=== PATIENT | male | born 1945 | race Caucasian/White ===

== ENCOUNTER 2018-05-16 11:38 | Inpatient (IN) | payer OTHER ==
[~2018-05-16] VITALS: Ht 172.7 cm; Wt 105.2 kg
[2018-05-16 11:49] VITALS: BP 183/88
[2018-05-16] MEDS ORDERED: ZOLOFT25 MG PO (11:55)
[2018-05-16 12:28] LABS: HEMATOCRIT 44.8 % (42.0-52.0); HEMOGLOBIN 15.5 gm/dL (14.0-18.0); MCH 30.5 pg (26.0-34.0); MCHC 34.5 g/dL (28.0-37.0); MCV 88.4 fL (80.0-100.0); MPV 7.6 fl. (7.2-11.1); NUCLEATED RBCS 0 /100WBC; PLATELET COUNT* 272 thou/uL (150-400); RBC 5.07 mil/uL (4.50-6.00); RDW-CV 13.9 % (10.5-14.5); WBC 8.4 thou/uL (4.0-11.0)
[2018-05-16 12:46] LABS: ANION GAP 7 mmol/L (7-16); BUN 16 mg/dL (7-18); CALCIUM 9.4 mg/dL (8.5-10.1); CHLORIDE 95 mmol/L (98-107); CO2 32 mmol/L (21-32); GLUCOSE 162 mg/dL (70-99); POTASSIUM 3.2 mmol/L (3.5-5.1); SODIUM 134 mmol/L (136-145); TROPONIN-I LEVEL <0.06 ng/mL (<0.06)
[2018-05-16 12:47] LABS: ALBUMIN 3.9 g/dL (3.4-5.0); ALKALINE PHOSPHATASE 71 U/L (46-116); NT-PRO BRAIN NAT PEPTIDE 286 pg/mL (<300); SGOT 25 U/L (15-37); SGPT 22 U/L (30-65); TOTAL BILIRUBIN 0.7 mg/dL (<0.1-1.0)
[2018-05-16] MEDS ORDERED: BUPRENORPHINE HC8 MG PO (13:19)
[2018-05-16] MEDS ORDERED: ALPRAZOLAM ER1 MG PO (13:19)
[2018-05-16 13:38] LABS: URINE BLOOD TRACE (Negative); URINE CLARITY CLEAR; URINE COLOR YELLOW; URINE GLUCOSE-RANDOM NEGATIVE (Negative); URINE KETONES 1+ (Negative); URINE LEUKOCYTES-REFLEX NEGATIVE (Negative); URINE NITRITE-REFLEX NEGATIVE (Negative); URINE PROTEIN 1+ (Negative); URINE SPECIFIC GRAVITY 1.025 (1.005-1.030); URINE UROBILINOGEN 0.2 E.U./dl (0.2-1.0)
[2018-05-16 13:39] LABS: ABSOLUTE LYMPHOCYTES 1.1 thou/uL (0.8-5.3); ABSOLUTE MONOCYTES 0.7 thou/uL (0.0-1.2); ABSOLUTE NEUTROPHILS 6.6 thou/uL (1.6-8.1)
[2018-05-16 13:40] LABS: PLATELET ESTIMATE ADEQUATE
[2018-05-16 13:42] LABS: ICTOTEST (BILI CONFIRMATORY) Negative (Negative); URINE BILIRUBIN 1+ (Negative)
[2018-05-16 15:48] VITALS: BP 179/88
[2018-05-16 16:24] LABS: AMP/METHAMP Negative (Negative); BARBITURATES Negative (Negative); BENZODIAZEPINES POSITIVE (Negative); COCAINE Negative (Negative); METHADONE Negative (Negative); OPIATES Negative (Negative); PCP Negative (Negative); THC Negative (Negative)
[2018-05-16 17:00] VITALS: BP 162/95
[2018-05-16 17:30] VITALS: BP 162/95
[2018-05-16 19:50] VITALS: BP 181/82
[2018-05-16 23:24] VITALS: BP 164/87
[2018-05-17] VITALS (7 sets, daily range): BP systolic 151–184; BP diastolic 76–94
--- NOTE | 2018-05-17 15:04 | EKG ---
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 : 1945 Requested By: Jacek Hager Order Number: [id number] MD: Parker Durán Measurements Intervals [place] Rate: 60 P: 2 ME: 167 QRS: -27 QRSD: 95 T: 45 QT: 409 QTc: 409 Interpretive Statements Sinus rhythm Borderline left axis deviation Borderline repolarization abnormality No previous ECG available for comparison Electronically Signed On 05-17-2018 15:04:11 CDT by Parker Durán [email or web address] <ELECTRONICALLY SIGNED> By: Parker Durán MD, [facility] 05/17/18 1504 1154 1154 Parker Durán MD, [facility] /EPI
[2018-05-17 21:14] LABS: CALCIUM 8.8 mg/dL (8.5-10.1); CREATININE 0.8 mg/dL (0.6-1.3); MAGNESIUM 1.9 mg/dL (1.8-2.4); POTASSIUM 3.8 mmol/L (3.5-5.1)
[2018-05-18] VITALS: BP 165/80
[2018-05-18 04:00] VITALS: BP 175/93
[2018-05-18 04:25] LABS: HEMATOCRIT 42.2 % (42.0-52.0); HEMOGLOBIN 14.6 gm/dL (14.0-18.0); MCH 30.6 pg (26.0-34.0); MCHC 34.5 g/dL (28.0-37.0); MCV 88.6 fL (80.0-100.0); MPV 7.5 fl. (7.2-11.1); RBC 4.76 mil/uL (4.50-6.00); WBC 8.7 thou/uL (4.0-11.0)
[2018-05-18 04:50] LABS: CALCIUM 8.8 mg/dL (8.5-10.1); CREATININE 0.8 mg/dL (0.6-1.3); MAGNESIUM 1.9 mg/dL (1.8-2.4); POTASSIUM 3.6 mmol/L (3.5-5.1)
[2018-05-18 05:00] VITALS: BP 162/74
[2018-05-18 07:30] VITALS: BP 166/71
[2018-05-18 11:47] VITALS: BP 197/86
[2018-05-18 12:52] VITALS: BP 197/86
--- NOTE | 2018-05-22 10:16 | CON ---
[address] [address] CONSULTATION Name: LETICIANEFTALI TERESA Room: [address] IN M.R.#: [id number] Admission: 05/16/18 Attend Phys: Madi Cordero, Discharge: 05/18/18 Date of : 43 Report #: [id number] THIS REPORT FOR: //name// CC: MICHELINE physician/PCP Madi Cordero DATE OF SERVICE: 05/18/2018 HISTORY OF PRESENT ILLNESS: This is a 73-year-old male patient who indicates that he was in the bathroom. He tripped and fell. He said he was unconscious for 3-4 hours. He also had some episodes of hallucination. He had some hallucination in the past. He does not know whether it is related to the medications. I do not believe his memory is good. He does take narcotics and medication has been considered as a probable cause for this patient's problem. Apparently, his biggest complaint is pain in the left shoulder and trapezius area. That is where he fell and he believes that is his biggest problem. REVIEW OF SYSTEMS: Positive for back pain. He went to [facility] after he fell. He was dismissed and then he came here, and as mentioned above, he is complaining of pain in that region. Does have a history of hypertension and here, his blood pressure looks uncontrolled. He does admit that he is taking a lot of psychotropic medication, but he indicates that he is trying to cut back. His altered mental status is better, but to me he still looked somewhat confused and his memory is poor. REVIEW OF SYSTEMS: A 14-point review of systems was carried out. He has multiple problems. He says he feels weak all over the body. He is not having any visual or ENT symptoms. He does not have any chest pain or respiratory difficulty. Denies any nausea or symptoms. He has a lot of musculoskeletal symptoms. Does not have any constitutional, dermatological, hematological, psychiatric, throat, allergic symptom, which are new. PAST MEDICAL HISTORY: Positive for chronic pain syndrome. FAMILY HISTORY: Negative for any early age stroke. SOCIAL HISTORY: Does not drink alcohol. PHYSICAL EXAMINATION: The patient's examinations indicate that the patient is alert and responsive. He did tell me what the month it is. He could not tell me what date it is. He knew what hospital he was in, but he did not know who the president was. His speech looks intact. His cranial nerve examination, the best I can look, is unremarkable. He moves all 4 extremities. His position looks intact. His reflexes are symmetrical. His tone looks symmetrical. He does not have any papilledema. There is no carotid bruit. He has no thyroid mass. He is moderately built individual who does not have any [place] [address] CONSULTATION Name: NEFTALI KELLY Room: [address] IN ..#: [id number] Admission: 05/16/18 Attend Phys: Madi Cordero, Discharge: 05/18/18 Date of : 43 Report #: [id number] features of eyes, ears and face. His vision and hearing looks adequate. His pulses are palpable. He does have a little edema, but he says he has it for a long time. His blood pressure is 197/86, respirations 16, pulse is 78, temperature is 98.5. LABORATORY DATA: His white count is 8.7. His sodium is 135. IMPRESSION: This patient had altered mental status. It did become worst with the fall. He is complaining of a lot of musculoskeletal symptoms. RECOMMENDATIONS: 1. Because of his symptom, I will go ahead and do an MRI. 2. We will check an EEG. 3. I will order a CT of the C-spine since he fell and hit his head. 4. He needs more pain management of a neurosurgeon for his spine problem by the neurologist, but his memory is very poor. He needs formal neuropsychological testing sometime, nobody comes here. We may ask speech therapy to evaluate his cognition. All of it was discussed with the patient in detail and he wants to follow this plan. <ELECTRONICALLY SIGNED> By: Reynaldo Holland MD 05/22/18 1016 [id number] [id number] Holland MD /nt
== END 2018-05-18 13:15 | disposition home health service (06) | DRG 92 ==
LOC: M.ERS 11:38 → M.TBA-ER 13:54 → M.2W 13:54
PROVIDERS: Emergency Medicine Emergency Medical Services; ADMIT Family Medicine
DX: G92 Toxic encephalopathy (principal); E87.1 Hypo-osmolality and hyponatremia; T78.8XXA Other adverse effects, not elsewhere classified, initial encounter; I10 Essential (primary) hypertension; W01.0XXA Fall on same level from slipping, tripping and stumbling without subsequent striking against object, initial encounter; E87.6 Hypokalemia; F32.9 Major depressive disorder, single episode, unspecified; E11.9 Type 2 diabetes mellitus without complications; G89.4 Chronic pain syndrome; E78.5 Hyperlipidemia, unspecified; Z88.2 Allergy status to sulfonamides; Y93.89 Activity, other specified; Y92.89 Other specified places as the place of occurrence of the external cause; Y99.8 Other external cause status